=== PATIENT | male | born 1965 ===

== ENCOUNTER 2025-01-01 10:32 | Emergency (ER) | payer SELFPAY ==
[2025-01-01 10:33] VITALS: BP 174/92
--- NOTE | 2025-01-01 10:47 | ED.GENMED ---
History of Present Illness
General
Chief Complaint: Skin Surface Trauma
Source: patient
Exam Limitations: none
Time Seen by Provider: 01/01/25 10:38
Nursing documentation reviewed up to this point in time: agreed with
History of Present Illness
History of Present Illness:
Patient is a 59-year-old male presenting with laceration of left knee. 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 Patient states he immediately came to the emergency
department for evaluation. He denies any numbness/tingling in left lower extremity. He has had no difficulty ambulating. No other injury sustained.
Patient is on any blood thinners.
He is unsure when his last tetanus shot was but believes it was greater than 5 years ago.
Review of Systems
Review of Systems
Allergies reviewed?: Yes
All Other Systems: ROS reviewed and negative except as documented in HPI and ROS
Phy Exam
Physical Exam
Physical Exam:
Vitals: Patient's vital signs are stable. Afebrile
General: Patient is well appearing, no acute distress
Skin: Approximately 3.5 cm linear laceration to left knee.
Head: Normocephalic, atraumatic
Throat: Protecting airway
Neck: Normal ROM, no cervical spine tenderness
Cardiac: Regular rate
Pulm: No apparent respiratory distress
Abdomen: Nondistended
Extremities: Superficial laceration to left knee as described above. Full range of motion in left knee. Normal sensation of left lower extremity. No evidence of tendon involvement.
Neuro: Grossly intact
Psychiatric: Normal affect.
Course
Orders/Labs/Results
Orders:
Orders
01/01/25 10:46
Tetanus/Diphth/Acelpertussis [Adacel] 0.5 ml IM .ONCE ONE
Vital Signs
Initial and Last Documented VS:
Initial Vital Signs
Temp Pulse Resp BP Pulse Ox
98.9 F 62 16 174/92 98
01/01/25 10:33 01/01/25 10:33 01/01/25 10:33 01/01/25 10:33 01/01/25 10:33
Last Documented Vital Signs
Temp Pulse Resp BP Pulse Ox
98.9 F 62 16 174/92 98
01/01/25 10:33 01/01/25 10:33 01/01/25 10:33 01/01/25 10:33 01/01/25 10:33
Procedures
Laceration Closure
Left Knee:
Status of Wound: clean
Size of Wound in cm: 3.5
Description of Wound Edges: sharp
Preparation: cleaned with saline and cleaned with Betadine
Anesthesia: 1% Lidocaine with epi
Revision/Debridement: routine- no revision
Wound exploration: explored to base- no FB
Type of Closure: interrupted sutures
Skin Closure Material: 4-0 nylon
Number of sutures: 6
MDM/Problems Addressed
Differential Diagnosis Includes:
Not limited to: Laceration, abrasion, etc.
MDM/Problems Addressed:
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 No other injuries sustained. Ambulating without difficulty. Unknown last tetanus. Vitals and physical exam as above. There is an approximately 3.5
cm linear laceration to left knee. No evidence of tendon involvement. LLE neurovascular intact w/ full ROM. Wound will require primary closure with sutures today.
Verbal consent obtained by patient. Wound anesthetized with 1% lidocaine with epinephrine. Wound was thoroughly irrigated with normal saline and Betadine. Laceration closed with 6 simple interrupted 4-0 nylon sutures with great skin approximation.
Hemeostasis obtained. Patient tolerated procedure well. Topical anabiotic and dressing applied. Wound care instructions discussed with patient at length including signs of infection. Advised suture removal in 10-14 days. Tdap booster updated today.
Patient stable for discharge home. Advised follow up with Workmen�s Comp. physician. All questions answer.
Chronic conditions affecting care:
N/A
Acute Exacerbation and/or Progression of Chronic Illness:
N/A
*Pulse Oximetry
Patient hypoxic: no
*EKG
Interpreted by ED Provider?: NA
*Emergency Management Coordinator Interpretation
Rate: Emergency Management Coordinator- N/A
*Critical Care Note
Total Time (30-74mins, 75-104mins- exclusive of procedures): Not Applicable
ED Attending Note
-
Portions of this chart may have been created with voice recognition software.� Occasional wrong word or��sound alike� substitutions may have occurred due to the inherent limitations of voice recognition software.
Discharge Plan
Departure
Patient Disposition: Home (Routine Discharge)
Date of Disposition: 01/01/25
Time of Disposition: 11:21
Patient with high blood pressure during this ER visit?: Yes
Condition: Good
Covid-19: Not Applicable
Discharge Problem:
Laceration of knee, left
Instructions: Wound Care (DC), Laceration Repair With Stitches (DC), BLOOD PRESSURE
Activity Restrictions/Additional Instructions:
REGRESE A URGENCIAS SI PRESENTA SANGRADO DE LA HERIDA QUE NO SE DETIENE EN CASA, O SI PRESENTA SIGNOS DE INFECCI�N, ANASTACIA FIEBRE, ESCALOFR�OS, ENROJECIMIENTO O HINCHAZ�N IMPORTANTES ALREDEDOR DE LA HERIDA, PUS DRENANDO DE LA HERIDA, VARILLAS GATICA
QUE SE EXTIENDEN DE LA HERIDA O CUALQUIER OTRA INQUIETUD.
- Abarca laceraci�n se cerr� con 6 puntos de sutura en urgencias. Estos deber�n retirarse en un plazo de 10 a 14 d�as. Cocoa puede hacerse en abarca centro de atenci�n primaria, urgencias o urgencias.
- Mantenga el vendaje actual rachele 24 horas. Retire el vendaje ma�frances y lave suavemente con agua y jab�n antes de aplicar juany nuevo. Contin�e lavando la herida a diario y mant�ngala cubierta con antibi�jolanta t�phoebe hasta que le retiren los puntos.
Vigile de cerca la herida para detectar signos de infecci�n.
- Debe consultar con abarca m�dico de accidentes laborales, ya que se trata de tricia lesi�n laboral.
Vigile de cerca kb s�ntomas y regrese al departamento de emergencias ante cualquier empeoramiento starla/s�ntomas nuevos o cualquier otra inquietud.
Interventions
Interventions:
*Risk Screen - Suicide Last Done: 01/01/25 10:47
*General Assessment Last Done: 01/01/25 10:44
*Neglect/Abuse Screening Last Done: 01/01/25 10:47
*ED- Fall Risk Assessment Last Done: 01/01/25 10:44
*ED COVID-19 Vaccine History Last Done: 01/01/25 10:44
*Nursing Disposition Last Done: 01/01/25 11:38
ED-Skin Assessment Last Done: 01/01/25 10:46
Discharge Date and Time
Discharge Date/Time: 01/01/25 11:38
Print Language: VINCENTIAN
[2025-01-01] MEDS: ADACEL 0.5 ML IM (10:51)
== END 2025-01-01 11:38 | disposition home or self-care (01) ==
LOC: EMR 10:32
PROVIDERS: EMERGENCY PHYSICIAN Emergency Medicine
DX: S81.012A Laceration without foreign body, left knee, initial encounter (principal); W29.3XXA Contact with powered garden and outdoor hand tools and machinery, initial encounter; Z23 Encounter for immunization
CPT/HCPCS: 90471; 12002; 99282; 90715